=== PATIENT | female | born 1960 | race Asian ===

== ENCOUNTER → 2016-10-11 | Outpatient (CLI) | payer OTHER ==
--- NOTE | 2016-10-11 15:02 | WOMENS IMAGING REPORT ---
EXAM DESCRIPTION: BILAT SCREENING MAMMO W/CAD COMPLETED DATE/TIME: 10/11/2016 2:02 pm REASON FOR STUDY: Z12.31, ROUTINE SCREENING MAMMO Z12.31 ENCNTR SCREEN MAMMOGRAM FOR MALIGNANT NEOP LASM OF [place] COMPARISON: None. TECHNIQUE: Standard craniocaudal and mediolateral oblique views of each breast recorded using Power Assurea l acquisition. LIMITATIONS: None. FINDINGS: No masses, calcifications or architectural distortion. No areas of suspicion. Read with the assistance of CAD. .[facility] - R2 Cenova Version 1.3 .[facility] Imaging - R2 Cenova Version 1.3 .[facility] - R2 Cenova Version 2.4 .[facility] [place] - R2 Cenova Version 2.4 .[facility] - R2 Microphone Operator Version 9.2 IMPRESSION: NORMAL MAMMOGRAM. BIRADS 1. BREAST DENSITY: b. There are scattered areas of fibroglandular density. BIRAD: 1 NEGATIVE RECOMMENDATION: ROUTINE SCREENING COMMENT: The patient has been notified of the results by letter per MQSA requirements. Additional no tification policies are in place for contacting patient with suspicious or incomplete findings. Quality ID #[id number]: The [employer] recommends an annual screening mammogram for women aged 40 years or over. This facility utilizes a reminder system to ensure that all patients receive reminder letters, and/or direct phone calls for appointments. This includes reminders for routine scr eening mammograms, diagnostic mammograms, or other Breast Imaging Interventions when appropriate. Th is patient will be placed in the appropriate reminder system. The [employer] (A[employer]) has developed recommendations for screening MRI of the breast s in certain patient populations, to be used in conjunction with mammography. Breast MRI surveillanc e may be appropriate for women with more than 20% lifetime risk of developing breast cancer as deter mined by genetic testing, significant family history of the disease, or history of mantle radiation f or Hodgkins Disease. ACR Practice Guidelines 2008. TECHNICAL DOCUMENTATION: FINDING NUMBER: (1) ASSESSMENT: (1) JOB ID: [id number] [employer]- All Rights Reserved
== END ==
LOC: WI 11:16
DX: Z12.31 Encounter for screening mammogram for malignant neoplasm of breast (principal)
CPT/HCPCS: 77067; G0202

== ENCOUNTER 2019-01-07 04:13 | Emergency (ER) | payer SELFPAY ==
[2019-01-07] MEDS ORDERED: LORAZEPAM 1 MG TABLET PO ONE (05:01)
[2019-01-07 05:11] LABS: ABSOLUTE EOSINOPHILS # (AUTO) 0.2 10^3/uL (0.0-0.6); ABSOLUTE LYMPHOCYTES (AUTO) 2.7 10^3/uL (0.5-4.7); ABSOLUTE MONOCYTES (AUTO) 0.3 10^3/uL (0.1-1.4); ABSOLUTE NEUT (AUTO) 3.5 10^3/uL (1.7-8.2); BASOPHILS % (AUTO) 0.7 % (0-2); EOSINOPHILS % (AUTO) 2.3 % (0-6); HEMATOCRIT 41.9 % (36.0-47.0); HEMOGLOBIN 14.1 g/dL (12.0-15.5); LYMPHOCYTES % (AUTO) 40.6 % (13-45); MEAN CORPUSCULAR HEMOGLOBIN 29.1 pg (27.0-33.4); MEAN CORPUSCULAR HGB CONC 33.6 g/dL (32.0-36.0); MEAN CORPUSCULAR VOLUME 87 fl (80-97); MONOCYTES % (AUTO) 4.7 % (3-13); PLATELET COUNT 300 10^3/uL (150-450); RED BLOOD COUNT 4.84 10^6/uL (3.72-5.28); SEGMENTED NEUTROPHILS % (AUTO) 51.7 % (42-78); TOTAL CELLS COUNTED % (AUTO) 100 %; WHITE BLOOD COUNT 6.7 10^3/uL (4.0-10.5)
[2019-01-07 05:39] LABS: ALBUMIN 4.7 g/dL (3.5-5.0); ALCOHOL 56 mg/dL (NONE DETECTED); ALKALINE PHOSPHATASE 92 U/L (38-126); ANION GAP 10 (5-19); ASPARTATE AMINO TRANSFERASE 35 U/L (14-36); BILIRUBIN,DIRECT 0.3 mg/dL (0.0-0.4); BILIRUBIN,TOTAL 0.6 mg/dL (0.2-1.3); BLOOD UREA NITROGEN 17 mg/dL (7-20); CALCIUM 9.5 mg/dL (8.4-10.2); CARBON DIOXIDE 27 mmol/L (22-30); CHLORIDE 106 mmol/L (98-107); GLUCOSE 103 mg/dL (75-110); POTASSIUM 3.8 mmol/L (3.6-5.0); TOTAL PROTEIN 8.1 g/dL (6.3-8.2)
[2019-01-07 05:39] LABS: APPEARANCE,URINE CLEAR; BILIRUBIN,URINE NEGATIVE (NEGATIVE); COLOR,URINE YELLOW; GLUCOSE, URINE NEGATIVE (NEGATIVE); KETONES,URINE NEGATIVE (NEGATIVE); LEUKOCYTE ESTERASE,URINE MODERATE (NEGATIVE); NITRITE,URINE NEGATIVE (NEGATIVE); PROTEIN,URINE NEGATIVE (NEGATIVE); URINE SPECIFIC GRAVITY 1.011; UROBILINOGEN,URINE NEGATIVE mg/dL (<2.0)
[2019-01-07 05:41] LABS: ACETAMINOPHEN < 10 ug/mL (10-30); SALICYLATE < 1.0 mg/dL (2.0-20.0)
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
[2019-01-07 05:55] LABS: URINE AMPHETAMINES SCREEN NEGATIVE; URINE BARBITURATES SCREEN NEGATIVE; URINE BENZODIAZEPINES SCREEN UNCONFIRMED POSITIVE; URINE COCAINE SCREEN NEGATIVE; URINE MARIJUANA (THC) SCREEN NEGATIVE; URINE METHADONE SCREEN NEGATIVE; URINE PHENCYCLIDINE SCREEN NEGATIVE
--- NOTE | 2019-01-07 07:01 | EKG REPORT ---
SEVERITY:- NORMAL ECG - SINUS RHYTHM : Confirmed by: Milagro Chang 07-Jan-2019 07:01:05
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
[2019-01-07] MEDS ORDERED: IBUPROFEN 600 MG TABLET PO ONE ×2 (13:39→18:45)
[2019-01-07] MEDS ORDERED: SERTRALINE HCL 50 MG TABLET PO SCH ×2 (13:45→18:00)
--- NOTE | 2019-01-07 13:49 | ER Document Report ---
Doctor's Note Notes: 01/07/19 13:46 Patient seen and examined. In short this is a 58-year-old female who is having difficulties with her daughter, here with suicidal ideation. The patient states she is not suicidal at this time. She states she "will just have to live with the fact that my daughter hates me." She denies any homicidal ideation. She does complain of some pain in her neck. She has a history of cervical fusion. Otherwise she states she is embarrassed to be here, and feels somewhat uncomfortable given the significant amount of yelling around the department that she is here thus far. On physical exam this is a pleasant 58-year-old female who appears her stated age amount of moderate distress. She is extremely tearful. Head is neuropsych any traumatic. Heart is regular rate and rhythm, lungs clear to oscillation bilaterally. Skin is warm and dry. I ensure that this patient has been brought here as an IVC for suicidal ideation. Medications will be placed as recommended by psychiatry. We will continue to monitor.
[2019-01-07] MEDS: BUSPIRONE HCL 10 MG TABLET PO SCH ×2 (17:51→20:00)
[2019-01-08 06:52] VITALS: BP 150/79
--- NOTE | 2019-01-08 10:05 | ER Document Report ---
Doctor's Note Notes: 01/08/19 10:03 Patient is seen and examined, chart reviewed. Patient states she is feeling improved right now. She still feels sad but agrees that she will just have to move on from her poor relationship with her daughter. She is living with her younger daughter here in town. She feels comfortable with that. She is anxious for discharge. She understands she needs further counseling. She was plugged in with a counseling group out of [place], is supposed to be seeing someone shortly. We discussed having a set appointment and continuing medications as started here. She was amenable to this plan. On physical exam she makes better eye contact today. She is not tearful, although she does still seem depressed. She seems to be looking forward to the future. Heart is regular rate and rhythm, lungs are clear to oscillation bilaterally. Patient is currently medically cleared, at this point she denies being a risk to herself or others in any way. We will attempt to set up an outpatient appointment for her and plan on discharge. 01/08/19 13:11 Patient deemed stable for discharge. She has an appointment for follow-up counseling tomorrow. We will write her new medications, she understands she is to return with worsening.
[2019-01-08] MEDS: BUSPIRONE HCL 10 MG TABLET PO SCH (10:27)
== END 2019-01-08 13:15 | disposition home or self-care (01) ==
LOC: ER 04:13
DX: R45.851 Suicidal ideations (principal); F43.10 Post-traumatic stress disorder, unspecified; F31.9 Bipolar disorder, unspecified; F10.920 Alcohol use, unspecified with intoxication, uncomplicated; Z88.6 Allergy status to analgesic agent; Z88.0 Allergy status to penicillin; Z98.1 Arthrodesis status
CPT/HCPCS: 36415; 80053; 80307; 81001; 85025; 93005; 93010; 99291